=== PATIENT | female | born 1950 | race Caucasian/White ===

== ENCOUNTER 2017-05-12 20:16 | Emergency (ER) | payer MEDICARE, OTHER ==
--- NOTE | 2017-05-12 21:13 | ERNOTE ---
Lower Extremity HPI - General Lower Extremities Pain: leg: right - painful Time Seen by Provider: 05/12/17 20:51 Source: patient Exam Limitations: no limitations - Immun/Allergies/Home Medications Immunizations: IMMUNIZATION HX Immunizations Up to Date Yes History of Influenza Vaccine No Hx Pneumococcal Vaccination Yes Allergies/Adverse Reactions: Allergies Allergy/AdvReac Type Severity Reaction Status Date / Time Sulfa (Sulfonamide Allergy Intermediate Verified 05/12/17 20:33 Antibiotics) [Sulfa(Sulfonamide Antibiotics)] clarithromycin [From Biaxin] Allergy Verified 05/12/17 20:33 trimethoprim Allergy Verified 05/12/17 20:33 Home Medications: HOME MEDICATIONS Furosemide 20 mg PO DAILY 06/14/12 [Last Taken 09/09/14 08:00 20mg] Lactobacillus Rhamnosus GG [Probiotic] 1 cap PO DAILY 06/14/12 [Last Taken 09/09 08:00 1 cap] Lisinopril 10 mg PO DAILY 06/14/12 [Last Taken 09/09/14 08:00 10mg] Multivitamin [Multivitamins] 1 each PO DAILY 06/14/12 [Last Taken 09/09/14 08: 00 1 tab] Naproxen Sodium [Naprelan] 500 mg PO BID 06/14/12 [Last Taken 09/09/14 08:00 500mg] Omeprazole [Prilosec] 20 mg PO DAILY 06/14/12 [Last Taken 09/09/14 08:00 20mg] Allopurinol [Zyloprim] 100 mg PO DAILY 02/06/15 [Last Taken Unknown] Fish Oil/Borage/Flax/Om3,6,9#1 [[place] 3-6-9 1,200 mg Softgel] 1,200 mg PO DAILY 02/12/15 [Last Taken Unknown] Metoclopramide HCl [Reglan] 10 mg PO QID PRN #60 tablet 02/15/15 [Last Taken Unknown] - History of Present Illness Narrative: Pt states that 2 days ago she began to have right leg pain. This has worsened since then. Occurred: other - 2 days ago Method of Injury: Reports: unknown Modifying Factors - (Improves): Reports: movement - walking Modifying Factors - (Worsens): Reports: immobilization Other Injuries: Reports: none Review of Systems - Review of Systems Constitutional: Absent: recent illness EYE: Present: no symptoms reported ENT: Present: no symptoms reported Respiratory: Absent: shortness of breath Cardiology: Absent: chest pain Gastrointestinal/Abdominal: Present: no symptoms reported Genitourinary: Present: no symptoms reported Musculoskeletal: Present: See HPI. Absent: back pain Skin: Absent: rash Neurological: Absent: numbness, tingling Endocrine: Present: no symptoms reported Hematologic/Lymphatic: Present: no symptoms reported Psych: Present: no symptoms reported - Patient's Past Medical History Patient History - Medical: Anemia, Diabetes Type 2, GERD, Other Patient History - Cardiac/Respiratory: No pertinent hx Patient History - Cancer: No Hx of Cancer Patient History - Surgical Procedures: Appendectomy, Cataracts, Total Knee Replacement, T & A Patient History - Other: None LMP (females 10-50): post men - Family History Father Family History - Medical: , Rheumatoid Arthritis Family History - Cardiac/Respiratory: Pneumonia Mother Family History - Medical: Diabetes Type 2 Family History - Cardiac/Respiratory: Coronary Heart Disease - Social History Living Situations: home Abuse History: No History of abuse Psych History: No pertinent hx Smoking Status: Never smoker Alcohol Use: none Drug Use: none - Immunizations Immunizations Up to Date: Yes Hx Pneumococcal Vaccination: Yes History of Influenza Vaccine: No Physical Exam - Physical Exam General Appearance: Present: wd/wn, alert, no apparent distress Head Exam: Present: normal inspection, no evidence of injury Respiratory: Present: no respiratory distress, no accessory muscle use Extremity Exam: Present: calf tenderness - right anterior/ lateral calf, no popliteal tenderness. right leg 1.5 cm larger than left. No cord palpated, tenderness diffuse. Absent: joint redness, joint swelling Neurological Exam: Present: alert, oriented, normal mood/affect, no motor/ sensory deficits Skin Exam: Present: normal color, warm/dry Lymphatic Exam: Present: no adenopathy ED Progress - Results and Orders Patient's Lab Results:: I have reviewed the patient's lab results. Results and Orders: Laboratory Tests 05/12/17 05/12/17 05/12/17 21:10 21:10 21:10 WBC 4.0 Hgb 8.0 L Hct 26.4 L Plt Count 117 L ESR 78 H D-Dimer C-Reactive Prot, Quant 1.8 H 05/12/17 21:10 WBC Hgb Hct Plt Count ESR D-Dimer 0.46 C-Reactive Prot, Quant - Vital Signs Patient's Vital Signs:: I have reviewed the patient's vital signs. Vital Signs: Vital Signs 05/12/17 20:28 Temperature 37.1 C Pulse Rate 68 Respiratory 16 Rate Blood Pressure 147/67 O2 Sat by Pulse 98 Oximetry - Progress/Reassessment Chief Complaint: Lower Extremity Pain/ Injury Progress:: Unchanged Departure Clinical Impression: Leg pain, anterior Qualifiers: Laterality: right Qualified Code(s): M79.604 - Pain in right leg - Departure Disposition: Home self-care Condition: Good Instructions: Cryotherapy, [id number], Heat Therapy Additional Instructions: alternate heat and cold. leave 20-30 minutes between them. See your primary care provider if not improving Referrals: Nicolas Sanchez, [Primary Care Provider] -
[2017-05-12 21:14] LABS: Hematocrit 26.4 % (37.0-47.0); Mean Cell Volume 79.5 fl (78-100); Mean Corpuscular Hemoglobin 24.1 pg (27-31); Mean Corpuscular Hgb Conc 30.3 g/dl (32-36); Mean Platelet Volume 10.1 fl (6.0-9.5); Neutrophil # 2.9 K/mm3 (1.3-6.0); Neutrophil % 72.8 % (42-75.0); Platelet Count 117 K/mm3 (150-450); Red Blood Count 3.32 M/mm3 (4.2-5.4)
[2017-05-12 22:48] VITALS: BP 144/51
== END 2017-05-12 22:49 | disposition home or self-care (01) ==
LOC: ER 20:16
DX: M79.604 Pain in right leg (principal); D64.9 Anemia, unspecified; E11.9 Type 2 diabetes mellitus without complications; K21.9 Gastro-esophageal reflux disease without esophagitis

== ENCOUNTER 2018-03-14 03:20 | Observation (INO) | payer MEDICARE, OTHER ==
[2018-03-14] MEDS ORDERED: NITROGLYCERIN 0.4 MG/TAB BTL SL ONE ×2 (03:35→03:49)
[2018-03-14] MEDS ORDERED: ONDANSETRON HCL/PF 2 MG/ML VIAL IV ONE (03:50)
[2018-03-14] MEDS ORDERED: ONDANSETRON HCL/PF 2 MG/ML VIAL ONE (03:50)
[2018-03-14] MEDS: NORMAL SALINE 1,000 ML IV PRN (03:50)
[2018-03-14] MEDS ORDERED: ASPIRIN 81 MG TAB.CHEW PO ONE (03:54)
[2018-03-14] MEDS ORDERED: ASPIRIN 81 MG TAB.CHEW ONE (03:54)
--- NOTE | 2018-03-14 04:13 | ERNOTE ---
Chest Pain/Cardiac HPI Date of Service: 03/14/18 Chief Complaint: Chest Pain Time Seen by Provider: 03/14/18 03:20 Source: patient, family Exam Limitations: no limitations Immunizations: IMMUNIZATION HX Immunizations Up to Date Yes History of Influenza Vaccine No Hx Pneumococcal Vaccination Yes Allergies/Adverse Reactions: Allergies Sulfa (Sulfonamide Antibiotics) [Sulfa(Sulfonamide Antibiotics)] Allergy (Intermediate, Verified 04/13/18 10:00) clarithromycin [From Biaxin] Allergy (Verified 04/13/18 10:00) trimethoprim Allergy (Verified 04/13/18 10:00) Home Medications: HOME MEDICATIONS RX: Furosemide 20 mg PO DAILY 06/14/12 [Last Taken 03/13/18 11:30] RX: Lactobacillus Rhamnosus GG [Probiotic] 1 cap PO DAILY 06/14/12 [Last Taken 03/13/18 11:30] RX: Lisinopril 10 mg PO DAILY 06/14/12 [Last Taken 03/13/18 11:30] RX: Multivitamin [Multivitamins] 1 ea PO DAILY 06/14/12 [Last Taken 03/13/18 11:30] RX: Naproxen Sodium [Naprelan] 500 mg PO BID 06/14/12 [Last Taken 03/13/18 11:30] RX: Omeprazole [Prilosec] 20 mg PO DAILY 06/14/12 [Last Taken 03/13/18 09:00] RX: Allopurinol [Zyloprim] 100 mg PO DAILY 02/06/15 [Last Taken 03/13/18 11:30] RX: Fish Oil/Borage/Flax/Om3,6,9#1 [[place] 3-6-9 1,200 mg Softgel] 1,200 mg PO DAILY 02/12/15 [Last Taken 03/13/18 11:30] Metoclopramide HCl [Reglan] 10 mg PO QID PRN #60 tab 02/15/15 [Last Taken 03/14/18 00:00] Acetaminophen [Pain Relief] 500 mg PO DAILY PRN 03/14/18 [Last Taken Unknown] Aspirin/Sod Bicarb/Citric Acid [[place] Es Tab Eff] 1 ea PO DAILY PRN 03/14/18 [Last Taken 03/13/18 18:00] cephalexin 500 mg capsule 500 mg PO QID #30 cap 04/13/18 [Last Taken Unknown] Pain Score #1 Pain Score: 10 Pain Score #2 Pain Score: 2 Pain Score #3 Pain Score: 0 Narrative: Patient has a history of acid reflux. She also had discussed a stress test with her doctor who was going to schedule a repeat one if she was having chest pains. She had one a couple of years ago. Today she began with chest pain going through to her back in the morning. It would get stronger and then almost go away, but did not, then get stronger again. It became very intense in the early hours of today so she came to the hospital. Date (Duration): 03/14/18 Time (Timing): 03:30 Timing: constant, getting worse Severity/Quality: severe, sharp Location: central, epigastric Chest Pain Radiation: no radiation Activities at Onset: none Modifying Factors - Improves: Present: nothing Modifying Factors - Worsens: Present: nothing Nitro Today/Relief: no nitro taken today Aspirin Treatment Today: no aspirin today Associated Symptoms: Present: shortness of breath, diaphoresis, nausea Prior Chest Pain/Cardiac Workup: Reports: prior chest pain, stress test Prior Treatment: Reports: treated by physician Review of Systems - Review of Systems Constitutional: Present: no symptoms reported EYE: Present: no symptoms reported ENT: Present: no symptoms reported Respiratory: Present: shortness of breath Cardiology: Present: chest pain Gastrointestinal/Abdominal: Present: nausea, vomiting Genitourinary: Present: no symptoms reported Musculoskeletal: Present: no symptoms reported Skin: Present: no symptoms reported Neurological: Present: no symptoms reported Endocrine: Present: no symptoms reported Hematologic/Lymphatic: Present: no symptoms reported Psych: Present: no symptoms reported All Other Systems: All systems neg except as marked Medical History (Last Updated 04/13/18 @ 10:04 by Yocasta Diaz) Acute renal failure Cholecystitis CHF (congestive heart failure) Diabetes GERD (gastroesophageal reflux disease) Surgical History: Surgical History (Last Updated 04/13/18 @ 10:04 by Yocasta Diaz) History of abdominal hernia Onset Date: 03/18/18 History of bilateral knee replacement Hx of appendectomy Hx of cholecystectomy Onset Date: 03/18/18 Hx of tonsillectomy Family History: Family History (Last Reviewed 03/14/18 @ 10:35 by Soumya May RN) Father Arthritis Mother Diabetes Heart disease Sister Cancer Social History: Preferred Language Arabic Smoking Status Never smoker Have you smoked in the past 12 No months Do you dip or chew tobacco No Abuse History No History of abuse Psych History No pertinent hx Alcohol Use none Drug Use none Physical Exam - Physical Exam General Appearance: Present: alert, severe distress, obese Head Exam: Present: normal inspection, no evidence of injury Eye Exam: Normal inspection: bilateral, PERRL: bilateral, EOMI: bilateral Ears, Nose, Throat: Present: normal ENT inspection, normal pharynx Neck: Present: normal inspection, nontender. Absent: carotid bruit Respiratory: Present: no respiratory distress, normal breath sounds, no accessory muscle use, chest nontender, lungs clear Cardiovascular/Chest: Present: regular rate, rhythm, no murmur, normal peripheral pulses Peripheral Pulses: N=norm/S=strong/W=weak/B=bound/A=absent: Carotid (R): Normal, Carotid (L): Normal, Radial (R): Normal, Dorsalis-pedis (R): Normal, Dorsalis- pedis (L): Normal Gastrointestinal/Abdominal: Present: normal bowel sounds, nontender, nondistended, soft, no organomegaly Rectal Exam: Present: deferred Pelvic Exam: Present: deferred Back Exam: Present: normal inspection, normal range of motion, no CVA tenderness, no vertebral tenderness Extremity Exam: Present: normal inspection, non-tender, normal range of motion, no edema Neurological Exam: Present: alert, oriented, normal mood/affect, no motor/sensory deficits Skin Exam: Present: normal color, warm/dry Lymphatic Exam: Present: no adenopathy ED Progress - Date and Time Seen: Date and Time: 03/14/18 06:21 Laboratory results: H/H 9.9/30.9, bun/creat 22/1.62, glucose 189, electrolyte wnl, liver functions 93,110,342, trop 0.017 - Results and Orders Patient's Lab Results:: I have reviewed the patient's lab results. - Vital Signs Patient's Vital Signs:: I have reviewed the patient's vital signs. Vital Signs: Vital Signs 03/14/18 03:29 03/14/18 03:41 Temperature 37.5 C Pulse Rate 82 86 Respiratory Rate 16 Blood Pressure 169/66 H 143/56 O2 Sat by Pulse Oximetry 98 95 - EKG EKG: NSR - with occasional premature ventricular contraction , low voltage in precordials EKG read: Interp. by me - X-Ray X-Ray #1 Interpretation: Interp. by me X-ray Comments: No infiltrates, cardiolmegaly - Progress/Reassessment Chief Complaint: Chest Pain Progress:: Improved - after two nitro sublingually, patient had no chest pain. She did have an episode of vomiting prior to its resolution. Back pain resolved shortly thereafter. Patient received aspirin also. She is pain free at this time. Plan - Plan Plan: Patient will be observed until a second troponin (4 hours) can be obtained at which time further decisions on care will be made. Departure Clinical Impression: Chest pain Qualifiers: Chest pain type: other chest pain Qualified Code(s): R07.89 - Other chest pain; R07.8 - Other chest pain - Departure Disposition: Still a patient Condition: Fair
[2018-03-14 04:16] LABS: Hematocrit 30.9 % (37.0-47.0); Hemoglobin 9.9 gm/dL (12.5-16.0); Mean Cell Volume 93.4 fl (78-100); Mean Corpuscular Hemoglobin 29.9 pg (27-31); Mean Platelet Volume 10.2 fl (8-12.5); Neutrophil # 6.2 K/mm3 (1.3-6.0); Platelet Count 86 K/mm3 (150-450); Red Blood Count 3.31 M/mm3 (4.2-5.4); Red Cell Distribution Width 14.5 % (11.5-14.0); White Blood Count 7.1 K/mm3 (4.0-10.5)
[2018-03-14 04:25] LABS: Prothrombin Time (Patient) 10.5 Seconds (9.0-11.0)
[2018-03-14 04:29] LABS: INR 1.05 INR (0.90-1.10); Partial Thrombolplastin Time 26.4 Seconds (24-32)
[2018-03-14 04:34] LABS: ALT 110 U/L (19-67); AST 93 U/L (0-48); Albumin * 3.2 gm/dl (3.4-5.0); Alkaline Phosphatase * 342 U/L (50-170); Anion Gap 9.2 mmol/L (6.8-13.8); BUN/Creatinine Ratio 13.6 (9.0-21.6); Bilirubin, Total 1.6 mg/dL (0.0-1.1); Blood Urea Nitrogen 22 mg/dL (3-23); Ca. Corrected For Albumin 8.9 mg/dL (8.4-10.2); Calcium * 8.6 mg/dL (7.9-10.9); Carbon Dioxide 28.6 mmol/L (24-32.6); Chloride 100 mmol/L (97-106); Glucose * 189 mg/dL (70-110); Potassium 3.8 mmol/L (3.4-4.6); Sodium 134 mmol/L (132-142); Total Protein 7.8 gm/dL (6.2-8.2); Troponin I Less than 0.017 ng/mL (0.00-0.10)
[2018-03-14] MEDS: ONDANSETRON HCL/PF 2 MG/ML VIAL IV PRN ×2 (09:39→23:07)
[2018-03-14] MEDS ORDERED: SOD BICARB PO PRN (11:10)
[2018-03-14] MEDS ORDERED: CITRIC ACID PO PRN (11:10)
[2018-03-14] MEDS ORDERED: ASPIRIN PO PRN (11:10)
[2018-03-14] MEDS ORDERED: ONDANSETRON 8 MG TAB.RAPDIS PO PRN (11:10)
[2018-03-14] MEDS ORDERED: ACETAMINOPHEN 500 MG TABLET PO PRN (11:10)
--- NOTE | 2018-03-14 13:16 | HP ---
Chief Complaint - Chief Complaint Date of Service: 03/14/18 Time of Service: 09:45 Chief Complaint: Chest pain and shortness of breath. History of Present Illness: Gwendolyn Sanderson is a 67-year-old female patient of Dr. Sanchez who developed substernal chest pain and was brought to the emergency room. Troponins and EKG were nonrevealing. However she did resolve with aspirin and 2 nitroglycerin. She does have a long-standing history of GERD. This morning she is feeling better and has not had anymore chest discomfort. Vital signs show blood pressure slightly elevated but otherwise completely stable. liver enzymes are elevated. Hemoglobin is 9.9 g. The white count is 7100 with 88% neutrophils. Platelets are low at 86,000. Troponin has been less than 0.017 2. EKG show no evidence of acute injury. Medical History (Last Reviewed 03/14/18 @ 10:35 by Soumya May RN) Acute renal failure Diabetes GERD (gastroesophageal reflux disease) Surgical History: Surgical History (Last Reviewed 03/14/18 @ 10:35 by Soumya May RN) History of bilateral knee replacement Hx of appendectomy Hx of tonsillectomy Family History: Family History (Last Reviewed 03/14/18 @ 10:35 by Soumya May RN) Father Arthritis Mother Diabetes Heart disease Sister Cancer Social History: Patient Lives/Resources With Spouse Utilized Occupation retired Preferred Language Faroese Smoking Status Former smoker Have you smoked in the past 12 No months Do you dip or chew tobacco No Abuse History No History of abuse Psych History No pertinent hx Alcohol Use none Drug Use none Review Of Systems (GEN) - Review of Systems Generalized/Overall Review: Present: Weakness, Malaise, Fatigue EENTM: Present: No Symptoms Reported Respiratory: Present: No Symptoms Reported Cardiac: Present: Chest Pain Abdominal: Present: No Symptoms Reported, Nausea, Vomiting Genitourinary: Present: No Symptoms Reported Musculoskeletal: Present: No Symptoms Reported Neurological: Present: No Symptoms Reported Skin: Present: No Symptoms Reported Endocrine: Present: No Symptoms Reported Misc: All systems neg except as marked Immunizations: IMMUNIZATION HX Immunizations Up to Date Yes History of Influenza Vaccine No Hx Pneumococcal Vaccination Yes Allergies/Adverse Reactions: Allergies Allergy/AdvReac Type Severity Reaction Status Date / Time Sulfa (Sulfonamide Allergy Intermediate Verified 03/14/18 04:13 Antibiotics) [Sulfa(Sulfonamide Antibiotics)] clarithromycin [From Biaxin] Allergy Verified 03/14/18 04:13 trimethoprim Allergy Verified 03/14/18 04:13 Home Medications: HOME MEDICATIONS Furosemide 20 mg PO DAILY 06/14/12 [Last Taken 03/13/18 11:30] Lactobacillus Rhamnosus GG [Probiotic] 1 cap PO DAILY 06/14/12 [Last Taken 03/13 11:30] Lisinopril 10 mg PO DAILY 06/14/12 [Last Taken 03/13/18 11:30] Multivitamin [Multivitamins] 1 each PO DAILY 06/14/12 [Last Taken 03/13/18 11:30 ] Naproxen Sodium [Naprelan] 500 mg PO BID 06/14/12 [Last Taken 03/13/18 11:30] Omeprazole [Prilosec] 20 mg PO DAILY 06/14/12 [Last Taken 03/13/18 09:00] Allopurinol [Zyloprim] 100 mg PO DAILY 02/06/15 [Last Taken 03/13/18 11:30] Fish Oil/Borage/Flax/Om3,6,9#1 [[place] 3-6-9 1,200 mg Softgel] 1,200 mg PO DAILY 02/12/15 [Last Taken 03/13/18 11:30] Metoclopramide HCl [Reglan] 10 mg PO QID PRN #60 tablet 02/15/15 [Last Taken 00:00] Acetaminophen [Pain Relief] 500 mg PO DAILY PRN 03/14/18 [Last Taken Unknown] Aspirin/Sod Bicarb/Citric Acid [[place] Es Tab Eff] 1 each PO DAILY PRN [Last Taken 03/13/18 18:00] Exam - Exam Vital Signs: Vital Signs - Last Taken Temp 37.6 C 03/14/18 11:10 Pulse 86 03/14/18 11:10 Resp 20 03/14/18 11:10 BP 144/56 03/14/18 11:10 Pulse Ox 94 03/14/18 11:10 Constitutional: Present: Alert, Oriented x3, Cooperative, Well developed, Well nourished, No distress, Obese ENT Exam: Present: normal ENT inspection Eye Exam: bilateral eye: normal inspection, PERRL, EOMI Neck: Present: non-tender, full range of motion Back Exam: Present: normal inspection, no CVA tenderness, no vertebral tenderness Breasts: Present: Exam deferred Respiratory: Present: chest non-tender Cardiovascular/Chest: Present: normal peripheral pulses, regular rate, rhythm, no chest tenderness, no edema Peripheral Pulses: carotid (R): 2+, carotid (L): 2+, radial (R): 2+, radial (L) : 2+ Abdomen: Present: soft, nondistended, no hepatospenomegaly, rebound tenderness, hypoactive /Rectal: Present: Exam deferred Extremity: Present: normal range of motion, non-tender, normal inspection, no pedal edema, no calf tenderness Skin Exam: Present: normal color, warm/dry, no cyanosis Lymphatic: Present: no adenopathy 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, no motor/sensory deficits, alert , normal mood/affect, oriented x 3 Appearance: Present: appropriate appearance, appropriate insight, neat Eye contact: Present: cooperative, good eye contact, normal speech Thoughts: Present: normal thought pattern, no apparent hallucination Diagnostic Studies: Abnormal Lab Results 03/14/18 03/14/18 Range/Units 04:15 04:15 RBC 3.31 L (4.2-5.4) M/mm3 Hgb 9.9 L (12.5-16.0) gm/dL Hct 30.9 L (37.0-47.0) % RDW 14.5 H (11.5-14.0) % Plt Count 86 L (150-450) K/mm3 Immature Gran % (Auto) 0.60 H (0.001-0.429) % Immature Gran # (Auto) 0.04 H (0.000-0.0310) K/mm3 Neutrophils % 88.0 H (42-75.0) % Lymphocytes % 4.5 L (20-51) % Neutrophils # 6.2 H (1.3-6.0) K/mm3 Lymphocytes # 0.32 L (1.5-3.5) k/mm3 Creatinine 1.62 H (0.4-1.4) mg/dL Est GFR (Non-Af Amer) 33 L (60-130) mL/min Random Glucose 189 H (70-110) mg/dL Total Bilirubin 1.6 H (0.0-1.1) mg/dL AST 93 H (0-48) U/L ALT 110 H (19-67) U/L Alkaline Phosphatase 342 H (50-170) U/L Albumin 3.2 L (3.4-5.0) gm/dl Laboratory Results WBC 7.1 K/mm3 (4.0-10.5) 03/14/18 04:15 RBC 3.31 M/mm3 (4.2-5.4) L 03/14/18 04:15 Hgb 9.9 gm/dL (12.5-16.0) L 03/14/18 04:15 Hct 30.9 % (37.0-47.0) L 03/14/18 04:15 MCV 93.4 fl (78-100) 03/14/18 04:15 MCH 29.9 pg (27-31) 03/14/18 04:15 MCHC 32.0 g/dl (32-36) 03/14/18 04:15 RDW 14.5 % (11.5-14.0) H 03/14/18 04:15 Plt Count 86 K/mm3 (150-450) L 03/14/18 04:15 MPV 10.2 fl (8-12.5) 03/14/18 04:15 Immature Gran % (Auto) 0.60 % (0.001-0.429) H 03/14/18 04:15 Immature Gran # (Auto) 0.04 K/mm3 (0.000-0.0310) H 03/14/18 04:15 Neutrophils % 88.0 % (42-75.0) H 03/14/18 04:15 Lymphocytes % 4.5 % (20-51) L 03/14/18 04:15 Monocytes % 6.2 % (0.0-9) 03/14/18 04:15 Eosinophils % 0.4 % (0.0-3.0) 03/14/18 04:15 Basophils % 0.3 % (0.0-1.0) 03/14/18 04:15 Nucleated RBC % 0.0 k/mm3 (0-1) 03/14/18 04:15 Neutrophils # 6.2 K/mm3 (1.3-6.0) H 03/14/18 04:15 Lymphocytes # 0.32 k/mm3 (1.5-3.5) L 03/14/18 04:15 Monocytes # 0.4 k/mm3 (0.0-1.0) 03/14/18 04:15 Eosinophils # 0.0 k/mm3 (0.0-0.7) 03/14/18 04:15 Absolute Basophils 0.0 k/mm3 (0.0-0.1) 03/14/18 04:15 PT 10.5 Seconds (9.0-11.0) 03/14/18 04:15 INR (Anticoag Therapy) 1.05 INR (0.90-1.10) 03/14/18 04:15 PTT ([facility]) 26.4 Seconds (24-32) 03/14/18 04:15 Sodium 134 mmol/L (132-142) 03/14/18 04:15 Plasma Sodium 135 mmol/L (130-142) 03/14/18 04:15 Potassium 3.8 mmol/L (3.4-4.6) 03/14/18 04:15 Chloride 100 mmol/L (97-106) 03/14/18 04:15 Carbon Dioxide 28.6 mmol/L (24-32.6) 03/14/18 04:15 Anion Gap 9.2 mmol/L (6.8-13.8) 03/14/18 04:15 BUN 22 mg/dL (3-23) 03/14/18 04:15 Creatinine 1.62 mg/dL (0.4-1.4) H 03/14/18 04:15 Est GFR (Non-Af Amer) 33 mL/min (60-130) L 03/14/18 04:15 BUN/Creatinine Ratio 13.6 (9.0-21.6) 03/14/18 04:15 Random Glucose 189 mg/dL (70-110) H 03/14/18 04:15 Calcium 8.6 mg/dL (7.9-10.9) 03/14/18 04:15 Calcium Adj for Albumin 8.9 mg/dL (8.4-10.2) 03/14/18 04:15 Total Bilirubin 1.6 mg/dL (0.0-1.1) H 03/14/18 04:15 AST 93 U/L (0-48) H 03/14/18 04:15 ALT 110 U/L (19-67) H 03/14/18 04:15 Alkaline Phosphatase 342 U/L (50-170) H 03/14/18 04:15 Troponin I Less than 0.017 ng/mL (0.00-0.10) 03/14/18 08:11 Total Protein 7.8 gm/dL (6.2-8.2) 03/14/18 04:15 Albumin 3.2 gm/dl (3.4-5.0) L 03/14/18 04:15 Assessment/Plan - Narrative Narrative: IV fluids, ondansetron for nausea, started on sucralfate suspension, repeat morning labs, started a PPI, progress diet and activity as tolerated. - Assessment/Plan (1) Enterocolitis Problem: Acute (2) Anemia Problem: Acute Qualifiers: Anemia type: due to chronic kidney disease Chronic kidney disease stage: stage 4 (severe) Qualified Code(s): N18.4 - Chronic kidney disease, stage 4 ( severe); D63.1 - Anemia in chronic kidney disease (3) UTI (urinary tract infection) Problem: Acute Qualifiers: Urinary tract infection type: acute cystitis (4) Acute renal failure Problem: Acute Qualifiers: Acute renal failure type: unspecified Qualified Code(s): N17.9 - Acute kidney failure, unspecified (5) Gastroesophageal reflux Problem: Acute Qualifiers: Esophagitis presence: esophagitis presence not specified Qualified Code(s) : K21.9 - Gastro-esophageal reflux disease without esophagitis (6) Chest pain Problem: Acute Qualifiers: Chest pain type: other chest pain Qualified Code(s): R07.89 - Other chest pain; R07.8 - Other chest pain
[2018-03-14] MEDS: PANTOPRAZOLE SODIUM 40 MG TABLET.EC PO SCH ×2 (13:19→20:52)
[2018-03-14] MEDS: FUROSEMIDE 10 MG/ML VIAL IV SCH ×2 (13:19→20:54)
[2018-03-14 15:30] LABS: Urine Appearance Clear (CLEAR); Urine Bilirubin Negative (NEGATIVE); Urine Blood Negative /ul (NEGATIVE); Urine Color Yellow; Urine Ketone Negative (NEGATIVE); Urine Nitrite Negative (NEGATIVE); Urine Protein Negative (NEGATIVE); Urine Urobilinogen Normal (NORMAL)
[2018-03-14 15:31] LABS: Urine Bacteria None Seen; Urine RBC None Seen /hpf (0-5); Urine WBC 0-5 /hpf (0-5)
[2018-03-14] MEDS: SUCRALFATE 1 G/10 ML UDC PO SCH ×2 (17:04→20:51)
[2018-03-14] MEDS ORDERED: BELLADONNA ALKALOIDS/PHENOBARB 60 ML BTL PO ONE (19:08)
[2018-03-14] MEDS ORDERED: MAG HYDROX/ALUMINUM HYD/SIMETH 148 ML BTL PO ONE (19:11)
[2018-03-14] MEDS ORDERED: LIDOCAINE HCL 20 ML UDC PO ONE (19:14)
[2018-03-14] MEDS ORDERED: LIDOCAINE HCL 20 ML UDC ONE (19:16)
[2018-03-14] MEDS ORDERED: MAG HYDROX/ALUMINUM HYD/SIMETH 30 ML UDC ONE (19:30)
[2018-03-14] MEDS ORDERED: MORPHINE SULFATE 10 MG/ML SYRG IV PRN (22:36)
[2018-03-15 05:38] LABS: Hematocrit 30.3 % (37.0-47.0); Hemoglobin 9.6 gm/dL (12.5-16.0); Mean Cell Volume 93.8 fl (78-100); Mean Corpuscular Hemoglobin 29.7 pg (27-31); Mean Corpuscular Hgb Conc 31.7 g/dl (32-36); Mean Platelet Volume 10.8 fl (8-12.5); Neutrophil % 90.5 % (42-75.0); Platelet Count 76 K/mm3 (150-450); Red Blood Count 3.23 M/mm3 (4.2-5.4); Red Cell Distribution Width 14.6 % (11.5-14.0); White Blood Count 7.8 K/mm3 (4.0-10.5)
[2018-03-15 05:54] LABS: Anion Gap 10.2 mmol/L (6.8-13.8); BUN/Creatinine Ratio 10.8 (9.0-21.6); Bilirubin, Total 3.8 mg/dL (0.0-1.1); Calcium * 8.5 mg/dL (7.9-10.9); Carbon Dioxide 28.5 mmol/L (24-32.6); Potassium 3.7 mmol/L (3.4-4.6); Total Protein 7.9 gm/dL (6.2-8.2)
[2018-03-15] MEDS: SUCRALFATE 1 G/10 ML UDC PO SCH ×4 (06:44→21:13)
[2018-03-15] MEDS: PANTOPRAZOLE SODIUM 40 MG TABLET.EC PO SCH ×2 (06:45→21:13)
[2018-03-15] MEDS ORDERED: ACETAMINOPHEN 325 MG TABLET PO PRN (07:27)
[2018-03-15] MEDS ORDERED: LEVOFLOXACIN IN DEXTROSE 5 % 750 MG/150 ML BAG IV ONE (07:55)
[2018-03-15] MEDS: FUROSEMIDE 10 MG/ML VIAL IV SCH (08:47)
[2018-03-15] MEDS ORDERED: ALLOPURINOL 100 MG TABLET PO SCH (09:00)
[2018-03-15] MEDS ORDERED: LISINOPRIL 10 MG TABLET PO SCH (09:00)
[2018-03-15] MEDS ORDERED: MULTIVITAMINS 1 CAP CAPSULE PO SCH (09:00)
--- NOTE | 2018-03-15 09:01 | PN ---
Subjective - Date and Time Seen Date: 03/15/18 Time: 07:20 Subjective Narrative: Gwendolyn Sanderson spiked a fever this morning 202.7. She is having quite a lot of pain again last night and I gave her 5 mg of morphine and her Carafate suspension and her pain resolved. She has not had any more pain since. She did not eat anything for breakfast this morning. I have placed her nothing by mouth. Her liver enzymes have increased and her bilirubin doubled up to 3.2 this morning. I believe she has a biliary outlet obstruction probably from gallbladder disease. I ordered an ultrasound but that report is still pending. I spoke with Dr. Weiner this morning and apprised him of the situation. He is going to see her today. I will move her to an acute care stay now. Objective - Review of Systems Generalized/Overall Review: Reports: No Symptoms Reported EENTM: Reports: No Symptoms Reported Respiratory: Reports: No Symptoms Reported Cardiac: Reports: No Symptoms Reported Abdominal: Reports: No Symptoms Reported Genitourinary Symptoms: Reports: No Symptoms Reported Musculoskeletal Complaints: Reports: No Symptoms Reported Neurological: Reports: No Symptoms Reported Skin: Reports: No Symptoms Reported Misc: All systems neg except as marked - Vitals Vitals: Last Vital Signs Temp 39.2 C H 03/15/18 07:20 Pulse 91 03/15/18 08:47 Resp 24 H 03/15/18 07:20 BP 141/49 03/15/18 08:47 Pulse Ox 92 L 03/15/18 07:20 - Abnormal Lab Findings Abnormal Lab Findings: Abnormal Lab Results 03/14/18 03/15/18 03/15/18 Range/Units 08:11 05:39 05:39 RBC 3.23 L (4.2-5.4) M/mm3 Hgb 9.6 L (12.5-16.0) gm/dL Hct 30.3 L (37.0-47.0) % MCHC 31.7 L (32-36) g/dl RDW 14.6 H (11.5-14.0) % Plt Count 76 L (150-450) K/mm3 Immature Gran % (Auto) 0.50 H (0.001-0.429) % Immature Gran # (Auto) 0.04 H (0.000-0.0310) K/mm3 Neutrophils % 90.5 H (42-75.0) % Lymphocytes % 2.7 L (20-51) % Neutrophils # 7.0 H (1.3-6.0) K/mm3 Lymphocytes # 0.21 L (1.5-3.5) k/mm3 Creatinine 1.76 H (0.4-1.4) mg/dL Est GFR (Non-Af Amer) 30 L (60-130) mL/min Random Glucose 166 H (70-110) mg/dL Total Bilirubin 3.8 H (0.0-1.1) mg/dL AST 121 H (0-48) U/L ALT 155 H (19-67) U/L Alkaline Phosphatase 360 H (50-170) U/L B-Natriuretic Peptide 378 H (5-325) pg/mL Albumin 3.0 L (3.4-5.0) gm/dl - Exam Constitutional: Present: Alert, Oriented x3, Cooperative, Well developed, Well nourished, No distress ENT Exam: Present: normal ENT inspection, hearing grossly normal, pharynx normal , TMs normal, hard of hearing Neck: Present: non-tender, full range of motion, supple, normal inspection, trachea midline Respiratory: Present: chest non-tender, lungs clear, normal breath sounds, no accessory muscle use, decreased breath sounds Cardiovascular/Chest: Present: normal peripheral pulses, regular rate, rhythm, no chest tenderness, no edema, no gallop, no JVD, no murmur, no rub Abdomen: Present: Normal bowel sounds, soft, nondistended, no rebound tenderness , no hepatospenomegaly, tender - In the midepigastrium, negative Jones sign. Absent: rebound tenderness /Rectal: Present: Exam deferred Extremity: Present: normal range of motion, non-tender, normal inspection, no pedal edema, no calf tenderness, normal capillary refill Skin Exam: Present: normal color, warm/dry, no cyanosis Lymphatic: Present: no adenopathy Neurologic: Present: director of healthcare systems II-XII nml as tested, normal cerebellar test, no motor/ sensory deficits, alert, normal mood/affect, abnormal gait, aphasia Appearance: Present: appropriate appearance, appropriate insight, neat Eye contact: Present: cooperative, good eye contact, normal speech Thoughts: Present: normal thought pattern, no apparent hallucination Assessment/Plan - Problems/Diagnosis (1) Biliary obstruction Problem: Acute (2) Enterocolitis Problem: Acute (3) Anemia Problem: Acute Qualifiers: Anemia type: due to chronic kidney disease Chronic kidney disease stage: stage 4 (severe) Qualified Code(s): N18.4 - Chronic kidney disease, stage 4 ( severe); D63.1 - Anemia in chronic kidney disease (4) UTI (urinary tract infection) Problem: Acute Qualifiers: Urinary tract infection type: acute cystitis (5) Acute renal failure Problem: Acute Qualifiers: Acute renal failure type: unspecified Qualified Code(s): N17.9 - Acute kidney failure, unspecified (6) Gastroesophageal reflux Problem: Acute Qualifiers: Esophagitis presence: esophagitis presence not specified Qualified Code(s) : K21.9 - Gastro-esophageal reflux disease without esophagitis (7) Chest pain Problem: Acute Qualifiers: Chest pain type: other chest pain Qualified Code(s): R07.89 - Other chest pain; R07.8 - Other chest pain
--- NOTE | 2018-03-15 11:02 | CONS ---
HPI - General Date of Service: 03/15/18 Source: patient, RN/MD, RN notes reviewed, old records Exam Limitations: no limitations - History of Present Illness Initial Comments: She started having severe substernal pain which radiated through to between the shoulder blades. She presented to the emergency room on 03/14/2018. She ruled out for myocardial infarction. She had some relief with GI cocktail and morphine. Last night she developed a fever and this morning her liver function studies were elevated. Ultrasound reveals dilated bile ducts, cholelithiasis, and probable choledocholithiasis Her last EGD was in 2009 and revealed some mild irritation, CLOtest negative. She had a negative colonoscopy in 2009 as well. Allergies/Adverse Reactions: Allergies Sulfa (Sulfonamide Antibiotics) [Sulfa(Sulfonamide Antibiotics)] Allergy ( Intermediate, Verified 03/14/18 04:13) clarithromycin [From Biaxin] Allergy (Verified 03/14/18 04:13) trimethoprim Allergy (Verified 03/14/18 04:13) Home Medications: Home Medications Medication Instructions Recorded Last Taken Furosemide 20 mg PO DAILY 06/14/12 03/13/18 11:30 Lactobacillus Rhamnosus GG 1 cap PO DAILY 06/14/12 03/13/18 11:30 [Probiotic] Lisinopril 10 mg PO DAILY 06/14/12 03/13/18 11:30 Multivitamin [Multivitamins] 1 each PO DAILY 06/14/12 03/13/18 11:30 Naproxen Sodium [Naprelan] 500 mg PO BID 06/14/12 03/13/18 11:30 Omeprazole [Prilosec] 20 mg PO DAILY 06/14/12 03/13/18 09:00 Allopurinol [Zyloprim] 100 mg PO DAILY 02/06/15 03/13/18 11:30 Fish Oil/Borage/Flax/Om3,6,9#1 1,200 mg PO DAILY 02/12/15 03/13/18 11:30 [[place] 3-6-9 1,200 mg Softgel] Metoclopramide HCl [Reglan] 10 mg PO QID PRN #60 tablet 02/15/15 03/14/18 00:00 Acetaminophen [Pain Relief] 500 mg PO DAILY PRN 03/14/18 Unknown Aspirin/Sod Bicarb/Citric Acid 1 each PO DAILY PRN 03/14/18 03/13/18 18:00 [[place] Es Tab Eff] Procedures COLONOSCOPY (11/10/09) ESOPHAGOGASTRODUODENOSCOPY [EGD] W/CLOSED BIOPSY (02/16/10) PACKED CELL TRANSFUSION (02/16/10) Total knee replacement (10/06/07) Medications - Medications Current Medications: Current Medications Acetaminophen (Tylenol) 650 mg PO Q6H PRN PRN Reason: Mild pain (pain scale 1-3) Stop: 04/14/18 07:28 Last Admin: 03/15/18 07:42 Dose: 650 mg Furosemide (Lasix) 40 mg IV BID CHYNA Stop: 03/15/18 11:16 Last Admin: 03/15/18 08:47 Dose: 40 mg Sodium Chloride (Sodium Chloride 0.9%) 1,000 mls @ 30 mls/hr IV .Q24H PRN PRN Reason: HYDRATION Stop: 04/13/18 04:07 Last Infusion: 03/14/18 08:47 Dose: 30 mls/hr Morphine Sulfate (Morphine Sulfate) 5 mg IV Q4H PRN PRN Reason: Pain Stop: 04/13/18 22:37 Last Admin: 03/14/18 23:06 Dose: 5 mg Ondansetron HCl (Zofran) 8 mg IV Q6H PRN PRN Reason: Nausea And Vomiting Stop: 04/13/18 09:15 Last Admin: 03/14/18 23:07 Dose: 8 mg Pantoprazole Sodium (Protonix) 40 mg PO BID@0700,2100 CHYNA Stop: 04/13/18 11:16 Last Admin: 03/15/18 06:45 Dose: 40 mg Sucralfate (Carafate Suspension) 1 g PO ACHS CHYNA Stop: 04/13/18 17:01 Last Admin: 03/15/18 06:44 Dose: 1 g Review of Systems - Review of Systems Abdominal: Present: Other - She continues to have discomfort in the mid chest and between the shoulder blades, although she did get some relief last night with morphine and slept a little. She has not had nausea or vomiting. Physical Examination - Exam Vital Signs: Vital Signs - Last Taken Temp 38.0 C 03/15/18 08:57 Pulse 91 03/15/18 08:47 Resp 24 H 03/15/18 07:20 BP 141/49 03/15/18 08:47 Pulse Ox 92 L 03/15/18 07:20 O2 Oxygen Delivery Method Room Air Constitutional: Present: Alert, Oriented x3, Cooperative, Morbidly obese Abdomen: Present: other - Very obese. Appearance: Present: appropriate insight Eye contact: Present: cooperative, good eye contact Thoughts: Present: normal thought pattern - Results and Findings: Lab/Microbiology results last 24 hrs: Abnormal/Pending Laboratory Last 24 HRS 03/15/18 03/15/18 03/14/18 05:39 05:39 08:11 RBC 3.23 L Hgb 9.6 L Hct 30.3 L MCHC 31.7 L RDW 14.6 H Plt Count 76 L Immature Gran % (Auto) 0.50 H Immature Gran # (Auto) 0.04 H Neutrophils % 90.5 H Lymphocytes % 2.7 L Neutrophils # 7.0 H Lymphocytes # 0.21 L Creatinine 1.76 H Est GFR (Non-Af Amer) 30 L Random Glucose 166 H Total Bilirubin 3.8 H AST 121 H ALT 155 H Alkaline Phosphatase 360 H B-Natriuretic Peptide 378 H Albumin 3.0 L Abdominal ultrasound reveals stones in the gallbladder with thickened gallbladder wall. The common bile duct is dilated and there is a filling defect - Assessments/Findings (1) Choledocholithiasis with obstruction Diagnosis(s): She also has had a fever which raises the concern of cholangitis as well, although this may be due to atelectasis from pain. Pamphlets on gallbladder disease, gallbladder surgery, and ERCP were reviewed with the patient and given to her. I would recommend transfer to the [facility] for ERCP. She will require cholecystectomy electively, and that will also need to be done at a tertiary care center that can provide care for morbidly obese individuals. I did discuss the case with Dr. Cruz Reviewed and electronically signed Problem: Acute
--- NOTE | 2018-03-15 12:40 | DS ---
Transfer Discharge Summary - Diagnosis(s)/Problems (1) Common bile duct (CBD) obstruction Problem: Acute (2) Acute cholecystitis due to biliary calculus Problem: Acute (3) Biliary obstruction Problem: Acute (4) Enterocolitis Problem: Acute (5) Anemia Problem: Acute (6) UTI (urinary tract infection) Problem: Acute (7) Acute renal failure Problem: Acute (8) Gastroesophageal reflux Problem: Acute (9) Chest pain Problem: Acute - Course Description of Stay: Gwendolyn Sanderson is a 67-year-old female who presented initially with substernal chest pain that was radiating through to the back. She did not have shortness of breath, diaphoresis, nausea, or lightheadedness. She had had a stress test done a few years ago that was normal. She is an obese lady with BMI of 52. After taking a history of doing a physical on her eye was quite convinced this was not cardiac and was a GI issue. She has a chronic history of GERD with acid reflux disease. She had an upper endoscopy done 2 years ago that did not show any erosion of the esophagus however. On exam she was tender in the right upper quadrant but more tender in the midepigastrium. She also has some tenderness in the left lateral upper abdomen. Her Jones's test is negative. Pain again last night that was relieved with nitroglycerin and sucralfate. She has been comfortable since then. She was nothing by mouth this morning. I ordered abdominal ultrasound which shows a 9 mm stone in the common bile duct and a gallbladder that appears to be acutely inflamed with thickened gallbladder wall and presence of intraluminal stones. She had spiked a fever to 102.7 this morning which was relieved with acetaminophen. At this time she is comfortable. I had see her and he agrees that she has had biliary obstruction from a stone. He believes she will need an ERCP to remove the stone and then electively schedule a cholecystectomy. I showed her her on Levaquin this morning. Because her BMI is greater than 40 on her surgery here but in any case we do not have the capability of doing an ERCP here. I will make transfer arrangements for her to go to [facility]. Consultation Done:: Dr. Weiner Procedures Performed: none - Results and Findings Results and Findings: Laboratory Results - last 24 hr 03/14/18 03/14/18 03/15/18 08:11 14:35 05:39 WBC 7.8 RBC 3.23 L Hgb 9.6 L Hct 30.3 L MCV 93.8 MCH 29.7 MCHC 31.7 L RDW 14.6 H Plt Count 76 L MPV 10.8 Immature Gran % (Auto) 0.50 H Immature Gran # (Auto) 0.04 H Neutrophils % 90.5 H Lymphocytes % 2.7 L Monocytes % 6.2 Eosinophils % 0.0 Basophils % 0.1 Nucleated RBC % 0.0 Neutrophils # 7.0 H Lymphocytes # 0.21 L Monocytes # 0.5 Eosinophils # 0.0 Absolute Basophils 0.0 Sodium Plasma Sodium Potassium Chloride Carbon Dioxide Anion Gap BUN Creatinine Est GFR (Non-Af Amer) BUN/Creatinine Ratio Random Glucose Calcium Calcium Adj for Albumin Total Bilirubin AST ALT Alkaline Phosphatase B-Natriuretic Peptide 378 H Total Protein Albumin Urine Color Yellow Urine Appearance Clear Urine pH 7.0 Ur Specific [place] 1.010 Urine Protein Negative Urine Glucose (UA) Negative Urine Ketones Negative Urine Blood Negative Urine Nitrate Negative Urine Bilirubin Negative Urine Urobilinogen Normal Ur Leukocyte Esterase Negative Urine RBC None seen Urine WBC 0-5 Ur Epithelial Cells 0-5 Urine Bacteria None seen 03/15/18 05:39 WBC RBC Hgb Hct MCV MCH MCHC RDW Plt Count MPV Immature Gran % (Auto) Immature Gran # (Auto) Neutrophils % Lymphocytes % Monocytes % Eosinophils % Basophils % Nucleated RBC % Neutrophils # Lymphocytes # Monocytes # Eosinophils # Absolute Basophils Sodium 134 Plasma Sodium 135 Potassium 3.7 Chloride 99 Carbon Dioxide 28.5 Anion Gap 10.2 BUN 19 Creatinine 1.76 H Est GFR (Non-Af Amer) 30 L BUN/Creatinine Ratio 10.8 Random Glucose 166 H Calcium 8.5 Calcium Adj for Albumin 9.0 Total Bilirubin 3.8 H AST 121 H ALT 155 H Alkaline Phosphatase 360 H B-Natriuretic Peptide Total Protein 7.9 Albumin 3.0 L Urine Color Urine Appearance Urine pH Ur Specific [place] Urine Protein Urine Glucose (UA) Urine Ketones Urine Blood Urine Nitrate Urine Bilirubin Urine Urobilinogen Ur Leukocyte Esterase Urine RBC Urine WBC Ur Epithelial Cells Urine Bacteria - Medications Medications: Active Medications Acetaminophen (Tylenol) 650 mg PO Q6H PRN PRN Reason: Mild pain (pain scale 1-3) Stop: 04/14/18 07:28 Last Admin: 03/15/18 07:42 Dose: 650 mg Allopurinol (Zyloprim) 100 mg PO DAILY [facility] Stop: 04/14/18 09:01 Last Admin: 03/15/18 11:21 Dose: 100 mg Sodium Chloride (Sodium Chloride 0.9%) 1,000 mls @ 30 mls/hr IV .Q24H PRN PRN Reason: HYDRATION Stop: 04/13/18 04:07 Last Infusion: 03/14/18 08:47 Dose: 30 mls/hr Lisinopril (Zestril) 10 mg PO DAILY CHYNA Stop: 04/14/18 09:01 Last Admin: 03/15/18 11:19 Dose: 10 mg Morphine Sulfate (Morphine Sulfate) 5 mg IV Q4H PRN PRN Reason: Pain Stop: 04/13/18 22:37 Last Admin: 03/14/18 23:06 Dose: 5 mg Multivitamins/Folic Acid (Multivitamin [place]) 1 cap PO DAILY CHYNA Stop: 04/14/18 09:01 Last Admin: 03/15/18 11:18 Dose: 1 cap Ondansetron HCl (Zofran) 8 mg IV Q6H PRN PRN Reason: Nausea And Vomiting Stop: 04/13/18 09:15 Last Admin: 03/14/18 23:07 Dose: 8 mg Pantoprazole Sodium (Protonix) 40 mg PO BID@0700,2100 [facility] Stop: 04/13/18 11:16 Last Admin: 03/15/18 06:45 Dose: 40 mg Sucralfate (Carafate Suspension) 1 g PO ACHS CHYNA Stop: 04/13/18 17:01 Last Admin: 03/15/18 11:20 Dose: 1 g Discontinued Medications Al Hydrox/Mg Hydrox/Simethicone (Maalox) 10 ml PO ONCE ONE Stop: 03/14/18 19:12 Last Admin: 03/14/18 19:33 Dose: 10 ml Aspirin (Aspirin Chewable) 324 mg PO ONCE ONE Stop: 03/14/18 03:55 Last Admin: 03/14/18 03:55 Dose: 324 mg Belladonna/Phenobarbital ( Elixir) 10 ml PO ONCE ONE Stop: 03/14/18 19:09 Last Admin: 03/14/18 19:34 Dose: 10 ml Furosemide (Lasix) 40 mg IV BID CHYNA Stop: 03/15/18 11:16 Last Admin: 03/15/18 08:47 Dose: 40 mg Levofloxacin/Dextrose (Levaquin) 750 mg in 150 mls @ 100 mls/hr IV ONCE ONE; Protocol Stop: 03/15/18 09:24 Last Admin: 03/15/18 08:51 Dose: 100 mls/hr Influenza Virus Vaccine Quadrival (Flulaval Quad [id number] Syringe) 60 mcg IM .ONCE ONE Stop: 03/14/18 13:51 Last Admin: 03/14/18 14:29 Dose: 60 mcg Lidocaine HCl (Lidocaine Hcl Viscous 2%) 20 ml PO ONCE ONE Stop: 03/14/18 19:15 Last Admin: 03/14/18 19:34 Dose: 20 ml Nitroglycerin (Nitrostat) 0.4 mg SL ONCE ONE Stop: 03/14/18 03:36 Last Admin: 03/14/18 03:37 Dose: 0.4 mg Nitroglycerin (Nitrostat) 0.4 mg SL ONCE ONE Stop: 03/14/18 03:50 Last Admin: 03/14/18 03:51 Dose: 0.4 mg Ondansetron HCl (Zofran) 4 mg IV ONCE ONE Stop: 03/14/18 03:51 Last Admin: 03/14/18 03:52 Dose: 4 mg - Disposition Disposition: Home self-care Condition: Fair Discharge Date: 03/15/18 Discharge Time: 12:36
[2018-03-15] MEDS: NORMAL SALINE 1,000 ML IV PRN (13:42)
[2018-03-15 21:57] VITALS: BP 122/45
== END 2018-03-15 22:10 | disposition short-term general hospital (02) ==
LOC: ER 03:20 → MS 03:20
PROVIDERS: ADMIT Family Medicine; ATTEND Family Medicine
DX: K52.9 Noninfective gastroenteritis and colitis, unspecified; D63.1 Anemia in chronic kidney disease; K80.01 Calculus of gallbladder with acute cholecystitis with obstruction; Z23 Encounter for immunization; N30.00 Acute cystitis without hematuria; K21.9 Gastro-esophageal reflux disease without esophagitis; K80.51 Calculus of bile duct without cholangitis or cholecystitis with obstruction; N17.9 Acute kidney failure, unspecified; N18.4 Chronic kidney disease, stage 4 (severe)
CPT/HCPCS: 36415; 71010; 71020; 71045; 71046; 76700; 80053; 81001; 83519; 83880; 84484; 85025; 85610; 85730; 87040; 90686; 93005; 96361; 96365; 96366; 96375; 96376; 99285; G0008; G0378; J2405

== ENCOUNTER 2018-07-10 22:43 | Observation (INO) ==
--- NOTE | 2018-07-10 23:06 | ERNOTE ---
Chest Pain/Cardiac HPI Time Seen by Provider: 07/10/18 22:46 Source: patient, family Exam Limitations: no limitations Immunizations: IMMUNIZATION HX Immunizations Up to Date Yes History of Influenza Vaccine Yes Hx Pneumococcal Vaccination Yes Allergies/Adverse Reactions: Allergies Sulfa (Sulfonamide Antibiotics) [Sulfa(Sulfonamide Antibiotics)] Allergy (Intermediate, Verified 07/10/18 23:30) clarithromycin [From Biaxin] Allergy (Verified 07/10/18 23:30) trimethoprim Allergy (Verified 07/10/18 23:30) iron [From Venofer] Adverse Reaction (Verified 07/10/18 23:31) Vomiting Home Medications: HOME MEDICATIONS Lactobacillus Rhamnosus GG [Probiotic] 1 cap PO DAILY 06/14/12 [Last Taken 07/10/18 10:00] Multivitamin [Multivitamins] 1 ea PO DAILY 06/14/12 [Last Taken 07/10/18 10:00] Naproxen Sodium [Naprelan] 500 mg PO BID 06/14/12 [Last Taken 07/10/18 10:00] Fish Oil/Borage/Flax/Om3,6,9#1 [[place] 3-6-9 1,200 mg Softgel] 1,200 mg PO DAILY 02/12/15 [Last Taken 07/10/18 10:00] Metoclopramide HCl [Reglan] 10 mg PO QID PRN #60 tab 02/15/15 [Last Taken 03/14/18 00:00] Acetaminophen [Pain Relief] 500 mg PO DAILY PRN 03/14/18 [Last Taken Unknown] Aspirin/Sod Bicarb/Citric Acid [[place] Es Tab Eff] 1 ea PO DAILY PRN 03/14/18 [Last Taken 03/13/18 18:00] allopurinol 100 mg tablet 100 mg PO DAILY #90 tab 05/01/18 [Last Taken 07/10/18 10:00] furosemide 40 mg tablet 40 mg PO DAILY #90 tab 05/01/18 [Last Taken 07/10/18 10:00] lisinopril 10 mg tablet 10 mg PO DAILY #90 tab 05/01/18 [Last Taken 07/10/18 10:00] omeprazole 20 mg tablet,delayed release 20 mg PO DAILY #90 tab 05/01/18 [Last Taken 07/10/18 10:00] Narrative: Pt had onset of palpitations approx 1 hours [employer] that are unchanged with activity or rest. Pt had an episode this afternoon around 13:00 but was relieved by activity. Pt feels palpitations then feels like her heart slows down s ignificantly. Timing: getting worse Severity/Quality: moderate Location: left chest Activities at Onset: rest Modifying Factors - Improves: Present: nothing Modifying Factors - Worsens: Present: movement Associated Symptoms: Present: denies symptoms Review of Systems - Review of Systems Constitutional: Present: recent illness - had a "cold" last week. Absent: fever, chills, fatigue EYE: Absent: vision changes ENT: Absent: sore throat, throat swelling Respiratory: Absent: shortness of breath, cough Cardiology: Present: See HPI, palpitations. Absent: chest pain Gastrointestinal/Abdominal: Absent: nausea, vomiting Genitourinary: Absent: frequency, dysuria Musculoskeletal: Absent: back pain, muscle pain Skin: Absent: rash Neurological: Absent: dizziness/light-headedness Endocrine: Absent: excessive sweating, flushing Hematologic/Lymphatic: Absent: easy bruising, easy bleeding Medical History (Last Reviewed 07/10/18 @ 23:04 by Jesus Day DO) Acute renal failure Cholecystitis CHF (congestive heart failure) Diabetes GERD (gastroesophageal reflux disease) Surgical History: Surgical History (Last Reviewed 07/10/18 @ 23:04 by Jesus Day DO) History of abdominal hernia Onset Date: 03/18/18 History of bilateral knee replacement History of endoscopic retrograde cholangiopancreatography Onset Date: 03/16/18 Dr. Larson, [facility]. Hx of appendectomy Hx of cholecystectomy Onset Date: 03/18/18 Hx of tonsillectomy Family History: Family History (Last Reviewed 07/10/18 @ 23:04 by Jesus Day DO) Father Arthritis Mother Heart disease Diabetes Sister Cancer Social History: Preferred Language [place] Smoking Status Former smoker Abuse History No History of abuse Psych History No pertinent hx (Last Updated 05/28/18 @ 22:52 by Nicolas Sanchez DO) No Social History Section defined Physical Exam - Physical Exam General Appearance: Present: wd/wn, no apparent distress Head Exam: Present: normal inspection, no evidence of injury Ears, Nose, Throat: Present: normal ENT inspection Neck: Present: normal inspection, nontender, supple Respiratory: Present: no respiratory distress, normal breath sounds, no accessory muscle use Cardiovascular/Chest: Present: normal peripheral pulses, tachycardia, irregularly irregular Gastrointestinal/Abdominal: Present: normal bowel sounds, nontender, nondistended, soft Extremity Exam: Present: normal inspection, normal range of motion, no edema Neurological Exam: Present: alert, oriented, normal mood/affect, no motor/sensory deficits Skin Exam: Present: normal color, warm/dry Lymphatic Exam: Present: no adenopathy Progress - Results and Orders Patient's Lab Results:: I have reviewed the patient's lab results. Results and Orders: Laboratory Tests 07/10/18 07/10/18 07/10/18 23:00 23:00 23:00 WBC 4.0 Hgb 9.0 L Hct 29.0 L Plt Count 97 L PT 10.2 INR (Anticoag Therapy) 1.02 PTT ([place]) 27.1 Sodium 140 Potassium 4.0 Chloride 104 Carbon Dioxide 25.1 BUN 25 H Creatinine 1.60 H Random Glucose 163 H Calcium 8.7 Total Bilirubin 0.4 AST 31 ALT 23 Alkaline Phosphatase 205 H Troponin I 0.072 Total Protein 8.5 H Albumin 3.3 L Urine Color Urine Appearance Urine pH Ur Specific [place] Urine Protein Urine Glucose (UA) Urine Ketones Urine Blood Urine Nitrate Urine Bilirubin Urine Urobilinogen Ur Leukocyte Esterase Urine RBC Urine WBC Ur Epithelial Cells Urine Bacteria Hyaline Casts Urine Mucus Urine Culture Comments 07/10/18 23:40 WBC Hgb Hct Plt Count PT INR (Anticoag Therapy) PTT ([place]) Sodium Potassium Chloride Carbon Dioxide BUN Creatinine Random Glucose Calcium Total Bilirubin AST ALT Alkaline Phosphatase Troponin I Total Protein Albumin Urine Color Yellow Urine Appearance Clear Urine pH 7.0 Ur Specific [place] 1.010 Urine Protein Negative Urine Glucose (UA) Negative Urine Ketones Negative Urine Blood 5 H Urine Nitrate Negative Urine Bilirubin Negative Urine Urobilinogen Normal Ur Leukocyte Esterase Negative Urine RBC 5-10 H Urine WBC 0-5 Ur Epithelial Cells 0-5 Urine Bacteria Trace Hyaline Casts Trace Urine Mucus Trace Urine Culture Comments No culture indicated - Vital Signs Patient's Vital Signs:: I have reviewed the patient's vital signs. - EKG EKG #1 EKG: atrial fibrillation - with RVR rate 129 EKG read: Interp. by me - X-Ray X-Ray #1 X-Ray: chest Interpretation: Interp. by me X-ray Comments: mild pulmonary edema no effusions or infiltrate - Progress/Reassessment Progress:: Improved Progress Note-Subjective: 07/11/18 00:[address] Santana about admission and she agrees. She prefers lovenox anticoagulation for tonight. Lovenox 1mg / kg ordered. Cardizem drip on hold at this time as the patients HR is staying in the 85-95 bpm range. Departure Clinical Impression: Atrial fibrillation with RVR Anemia Qualifiers: Anemia type: iron deficiency Iron deficiency anemia type: unspecified iron deficiency Qualified Code(s): D50.9 - Iron deficiency anemia, unspecified - Departure Disposition: Still a patient Condition: Fair
[2018-07-10] MEDS ORDERED: DILTIAZEM HCL 5 MG/ML VIAL IV ONE (23:08)
[2018-07-10 23:19] LABS: Mean Cell Volume 90.3 fl (78-100); Mean Platelet Volume 10.8 fl (8-12.5); Neutrophil % 75.4 % (42-75.0); Platelet Count 97 K/mm3 (150-450); Red Blood Count 3.21 M/mm3 (4.2-5.4); Red Cell Distribution Width 15.9 % (11.5-14.0)
[2018-07-10 23:29] LABS: Prothrombin Time (Patient) 10.2 Seconds (9.0-11.0)
[2018-07-10 23:32] LABS: INR 1.02 INR (0.90-1.10); Partial Thrombolplastin Time 27.1 Seconds (24-32)
[2018-07-10 23:36] LABS: Albumin * 3.3 gm/dl (3.4-5.0); Anion Gap 14.9 mmol/L (6.8-13.8); BUN/Creatinine Ratio 15.6 (9.0-21.6); Bilirubin, Total 0.4 mg/dL (0.0-1.1); Ca. Corrected For Albumin 8.9 mg/dL (8.4-10.2); Calcium * 8.7 mg/dL (7.9-10.9); Carbon Dioxide 25.1 mmol/L (24-32.6); Total Protein 8.5 gm/dL (6.2-8.2); Troponin I 0.072 ng/mL (0.00-0.10)
[2018-07-10 23:54] LABS: Urine Bilirubin Negative (NEGATIVE); Urine Ketone Negative (NEGATIVE); Urine Nitrite Negative (NEGATIVE); Urine Protein Negative (NEGATIVE); Urine Urobilinogen Normal (NORMAL)
[2018-07-10] MEDS ORDERED: DILTIAZEM HCL 125 MG in DEXTROSE 5 % IN WATER 100 ML IV PRN ×2 (23:58)
[2018-07-11 00:03] LABS: Urine Appearance Clear (CLEAR); Urine Blood 5 /ul (NEGATIVE); Urine Color Yellow
[2018-07-11 00:04] LABS: Urine Bacteria TRACE; Urine Hyaline Cast TRACE /LPF; Urine Mucus TRACE; Urine WBC 0-5 /hpf (0-5)
[2018-07-11] MEDS ORDERED: ENOXAPARIN SODIUM 100 MG/ML SYRG SC ONE (00:40)
[2018-07-11] MEDS ORDERED: ENOXAPARIN SODIUM 30 MG/0.3 ML SYRG SC ONE (00:41)
--- NOTE | 2018-07-11 10:39 | HP ---
Chief Complaint - Chief Complaint Date of Service: 07/11/18 Time of Service: 10:28 Chief Complaint: palpitations History of Present Illness: Patient with PMHx of anemia, diabetes, reflux had a few episodes of palpitations and presented to the ED. in the ED, she was in A. fib with RVR. She was given 10 mg IV Cardizem, and converted to normal sinus rhythm. She reports having been given beta-blockers in the past, and her heart rate decreased to the 30s. At the time of my exam, she denies chest pain, shortness of breath, abdominal pain, lightheadedness, lower extremity swelling. She states that chronic kidney failure and CHF are listed in her chart, but do not apply to her. She believes she had an echocardiogram in [place] prior to her gallbladder surgery last fall. Medical History (Last Updated 07/11/18 @ 02:32 by Soumya Delacruz RN) Borderline diabetes Cataract, bilateral Acute renal failure Cholecystitis GERD (gastroesophageal reflux disease) Surgical History: Surgical History (Last Reviewed 07/11/18 @ 02:25 by Soumya Delacruz RN) History of abdominal hernia Onset Date: 03/18/18 History of bilateral knee replacement History of endoscopic retrograde cholangiopancreatography Onset Date: 03/16/18 Dr. Larson, [facility]. Hx of appendectomy Hx of cholecystectomy Onset Date: 03/18/18 Hx of tonsillectomy Family History: Family History (Last Updated 07/11/18 @ 02:26 by Soumya Delacruz RN) Father Arthritis Mother Diabetes Heart disease Sister Cancer Brother CHF (congestive heart failure) Renal failure Social History: Patient Lives/Resources With Spouse Utilized Occupation retired Preferred Language Bulgarian Do you have any yarsani or Yes: Hindu cultural preference? Smoking Status Former smoker Have you smoked in the past 12 No months Do you dip or chew tobacco No Abuse History No History of abuse Psych History No pertinent hx Alcohol Use none Drug Use none (Last Updated 05/28/18 @ 22:52 by Nicolas Sanchez DO) No Social History Section defined Review Of Systems (GEN) - Review of Systems Generalized/Overall Review: Absent: Fever Respiratory: Absent: Shortness of Breath Cardiac: Present: Edema - mild, Palpitations. Absent: Chest Pain, Syncope Abdominal: Present: No Symptoms Reported Immunizations: IMMUNIZATION HX Immunizations Up to Date Yes History of Influenza Vaccine Yes Hx Pneumococcal Vaccination Yes Allergies/Adverse Reactions: Allergies Allergy/AdvReac Type Severity Reaction Status Date / Time Sulfa (Sulfonamide Allergy Intermediate Verified 07/10/18 23:30 Antibiotics) [Sulfa(Sulfonamide Antibiotics)] clarithromycin [From Biaxin] Allergy Verified 07/10/18 23:30 trimethoprim Allergy Verified 07/10/18 23:30 iron [From Venofer] AdvReac Vomiting Verified 07/10/18 23:31 Home Medications: HOME MEDICATIONS Lactobacillus Rhamnosus GG [Probiotic] 1 cap PO DAILY 06/14/12 [Last Taken 07/10/18 10:00] Multivitamin [Multivitamins] 1 ea PO DAILY 06/14/12 [Last Taken 07/10/18 10:00] Naproxen Sodium [Naprelan] 500 mg PO BID 06/14/12 [Last Taken 07/10/18 10:00] Fish Oil/Borage/Flax/Om3,6,9#1 [[place] 3-6-9 1,200 mg Softgel] 1,200 mg PO DAILY 02/12/15 [Last Taken 07/10/18 10:00] Metoclopramide HCl [Reglan] 10 mg PO QID PRN #60 tab 02/15/15 [Last Taken 03/14/18 00:00] Acetaminophen [Pain Relief] 500 mg PO DAILY PRN 03/14/18 [Last Taken Unknown] Aspirin/Sod Bicarb/Citric Acid [[place]aty[place] Es Tab Eff] 1 ea PO DAILY PRN 03/14/18 [Last Taken 03/13/18 18:00] allopurinol 100 mg tablet 100 mg PO DAILY #90 tab 05/01/18 [Last Taken 07/10/18 10:00] furosemide 40 mg tablet 40 mg PO DAILY #90 tab 05/01/18 [Last Taken 07/10/18 10:00] lisinopril 10 mg tablet 10 mg PO DAILY #90 tab 05/01/18 [Last Taken 07/10/18 10:00] omeprazole 20 mg tablet,delayed release 20 mg PO DAILY #90 tab 05/01/18 [Last Taken 07/10/18 10:00] Exam - Exam Vital Signs: Vital Signs - Last Taken Temp 36.8 C 07/11/18 06:00 Pulse 67 07/11/18 06:00 Resp 16 07/11/18 06:00 BP 150/46 H 07/11/18 06:00 Pulse Ox 97 07/11/18 06:00 Constitutional: Present: Alert, Oriented x3, Cooperative, Morbidly obese Respiratory: Present: no respiratory distress - distant, secondary to body habitus Cardiovascular/Chest: Present: bradycardia - HR 56 Abdomen: Present: soft, nontender, obese Extremity: Present: lower extremity edema - 1+ bilaterally to the ankle Diagnostic Studies: Abnormal Lab Results 07/10/18 07/10/18 07/10/18 Range/Units 23:00 23:00 23:40 RBC 3.21 L (4.2-5.4) M/mm3 Hgb 9.0 L (12.5-16.0) gm/dL Hct 29.0 L (37.0-47.0) % MCHC 31.0 L (32-36) g/dl RDW 15.9 H (11.5-14.0) % Plt Count 97 L (150-450) K/mm3 Neutrophils % 75.4 H (42-75.0) % Lymphocytes % 15.9 L (20-51) % Lymphocytes # 0.63 L (1.5-3.5) k/mm3 Anion Gap 14.9 H (6.8-13.8) mmol/L BUN 25 H (3-23) mg/dL Creatinine 1.60 H (0.4-1.4) mg/dL Est GFR (Non-Af Amer) 34 L (60-130) mL/min Random Glucose 163 H (70-110) mg/dL Alkaline Phosphatase 205 H (50-170) U/L Total Protein 8.5 H (6.2-8.2) gm/dL Albumin 3.3 L (3.4-5.0) gm/dl Urine Blood 5 H (NEGATIVE) /ul Urine RBC 5-10 H (0-5) /hpf Laboratory Results WBC 4.0 K/mm3 (4.0-10.5) 07/10/18 23:00 RBC 3.21 M/mm3 (4.2-5.4) L 07/10/18 23:00 Hgb 9.0 gm/dL (12.5-16.0) L 07/10/18 23:00 Hct 29.0 % (37.0-47.0) L 07/10/18 23: MCV 90.3 fl (78-100) 07/10/18 23: MCH 28.0 pg (27-31) 07/10/18 23: MCHC 31.0 g/dl (32-36) L 07/10/18 23:00 RDW 15.9 % (11.5-14.0) H 07/10/18 23: Plt Count 97 K/mm3 (150-450) L 07/10/18: MPV 10.8 fl (8-12.5) 07/10/18 23: Immature Gran % (Auto) 0.30 % (0.001-0.429) 07/10/18: Immature Gran # (Auto) 0.01 K/mm3 (0.000-0.0310) 07/10/18 23: Neutrophils % 75.4 % (42-75.0) H 07/10/18 23: Lymphocytes % 15.9 % (20-51) L 07/10/18 23: Monocytes % 6.8 % (0.0-9) 07/10/18 23: Eosinophils % 1.3 % (0.0-3.0) 07/10/18: Basophils % 0.3 % (0.0-1.0) 07/10/18: Nucleated RBC % 0.0 k/mm3 (0-1) 07/10/18 23: Neutrophils # 3.0 K/mm3 (1.3-6.0) 07/10/18 23: Lymphocytes # 0.63 k/mm3 (1.5-3.5) L 07/10/18 23: Monocytes # 0.3 k/mm3 (0.0-1.0) 07/10/18 23: Eosinophils # 0.1 k/mm3 (0.0-0.7) 07/10/18: Absolute Basophils 0.0 k/mm3 (0.0-0.1) 07/10/18 23: PT 10.2 Seconds (9.0-11.0) 07/10/18 23:00 INR (Anticoag Therapy) 1.02 INR (0.90-1.10) 07/10/18 23:00 PTT ([place]) 27.1 Seconds (24-32) 07/10/18 23:00 Sodium 140 mmol/L (132-142) 07/10/18 23:00 Plasma Sodium 141 mmol/L (130-142) 07/10/18 23:00 Potassium 4.0 mmol/L (3.4-4.6) 07/10/18 23:00 Chloride 104 mmol/L (97-106) 07/10/18 23:00 Carbon Dioxide 25.1 mmol/L (24-32.6) 07/10/18 23:00 Anion Gap 14.9 mmol/L (6.8-13.8) H 07/10/18 23:00 BUN 25 mg/dL (3-23) H 07/10/18 23:00 Creatinine 1.60 mg/dL (0.4-1.4) H 07/10/18 23:00 Est GFR (Non-Af Amer) 34 mL/min (60-130) L 07/10/18 23:00 BUN/Creatinine Ratio 15.6 (9.0-21.6) 07/10/18 23:00 Random Glucose 163 mg/dL (70-110) H 07/10/18 23:00 Calcium 8.7 mg/dL (7.9-10.9) 07/10/18 23:00 Calcium Adj for Albumin 8.9 mg/dL (8.4-10.2) 07/10/18 23:00 Total Bilirubin 0.4 mg/dL (0.0-1.1) 07/10/18 23:00 AST 31 U/L (0-48) 07/10/18 23:00 ALT 23 U/L (19-67) 07/10/18 23:00 Alkaline Phosphatase 205 U/L (50-170) H 07/10/18 23:00 Troponin I 0.072 ng/mL (0.00-0.10) 07/10/18 23:00 Total Protein 8.5 gm/dL (6.2-8.2) H 07/10/18 23:00 Albumin 3.3 gm/dl (3.4-5.0) L 07/10/18 23:00 Urine Color Yellow 07/10/18 23:40 Urine Appearance Clear (CLEAR) 07/10/18 23:40 Urine pH 7.0 pH (5.0-7.0) 07/10/18 23:40 Ur Specific [place] 1.010 SP.GR. (1.005-1.010) 07/10/18 23:40 Urine Protein Negative mg/dL (NEGATIVE) 07/10/18 23:40 Urine Glucose (UA) Negative mg/dL (NEGATIVE) 07/10/18 23:40 Urine Ketones Negative mg/dL (NEGATIVE) 07/10/18 23:40 Urine Blood 5 /ul (NEGATIVE) H 07/10/18 23:40 Urine Nitrate Negative (NEGATIVE) 07/10/18 23:40 Urine Bilirubin Negative mg/dl (NEGATIVE) 07/10/18 23:40 Urine Urobilinogen Normal EU/dl (NORMAL) 07/10/18 23:40 Ur Leukocyte Esterase Negative /ul (NEGATIVE) 07/10/18 23:40 Urine RBC 5-10 /hpf (0-5) H 07/10/18 23:40 Urine WBC 0-5 /hpf (0-5) 07/10/18 23:40 Ur Epithelial Cells 0-5 /hpf (0-5) 07/10/18 23:40 Urine Bacteria Trace (NONE) 07/10/18 23:40 Hyaline Casts Trace /LPF (NONE) 07/10/18 23:40 Urine Mucus Trace (NONE) 07/10/18 23:40 Urine Culture Comments No culture indicated 07/10/18 23:40 Assessment/Plan - Assessment/Plan (1) Atrial fibrillation with RVR Assessment: At the time of my exam, she has converted to normal sinus rhythm with heart rate of 56. She reports previously being given a beta-yo and her heart rate decreased to the 30s. She currently has bradycardia, and we will not add additional rate control medication, as this will likely decrease her heart rate even further. She does agree to anticoagulation, and will start Lovenox and 5 mg Coumadin daily. She reports having had an echocardiogram in March 2018, however unable to find this with chart review. She has not actually had an echo recently, would recommend after discharge. Will order TSH to be done with INR after discharge. She has hypothyroidism listed as a problem in her chart. TSH in November 2017 was 2.4. Problem: Resolved (2) Anemia Assessment: Hemoglobin of 9 today. Her baseline appears to be around 10, so she is not significantly decreased from her normal. No further intervention. Problem: Chronic Qualifiers: Anemia type: iron deficiency Iron deficiency anemia type: unspecified iron deficiency Qualified Code(s): D50.9 - Iron deficiency anemia, unspecified (3) Swelling of both lower extremities Assessment: Patient is prescribed 40 mg p.o. Lasix daily, will continue. 1+ bilateral swelling present currently, without pitting. If no recent echo, would recommend after discharge. Problem: Chronic (4) CKD (chronic kidney disease) stage 3, GFR 30-59 ml/min Assessment: Patient is unaware of having had any kidney diagnoses, however her GFR is 34, indicating stage III chronic renal disease. Her baseline creatinine looks to be around 1.38. Problem: Chronic (5) Diabetes Problem: Chronic Qualifiers: Diabetes mellitus type: type 2 Diabetes mellitus termite technician insulin use: without termite technician use
--- NOTE | 2018-07-11 11:07 | DS ---
(1) Atrial fibrillation with RVR Problem: Resolved (2) Anemia Problem: Chronic Qualifiers: Anemia type: iron deficiency Iron deficiency anemia type: unspecified iron deficiency Qualified Code(s): D50.9 - Iron deficiency anemia, unspecified (3) Swelling of both lower extremities Problem: Chronic (4) CKD (chronic kidney disease) stage 3, GFR 30-59 ml/min Problem: Chronic (5) Diabetes Problem: Chronic Qualifiers: Diabetes mellitus type: type 2 Diabetes mellitus chcf insulin use: without chcf use Description of Stay: Patient with PMHx of anemia, diabetes, reflux had a few episodes of palpitations and presented to the ED. in the ED, she was in A. fib with RVR. She was given 10 mg IV Cardizem, and converted to normal sinus rhythm. She reports having been given beta-blockers in the past, and her heart rate decreased to the 30s. Her heart rate on my exam was 56. She likely would not tolerate a rate control agent. Since she was having intermittent palpitations, she likely was going in and out of sinus rhythm, so she is at increased risk of stroke. CHADSVASC score of 4.0, indicating moderate-high risk. She agreed to anticoagulation, and will DC with lovenox and warfarin until her INR is greater than 2.0. Will order TSH to be drawn after DC. She feels like she had an echocardiogram in in March, but unable to locate this in her chart. If this has not been done, I would also recommend an echo. Denies chest pain, shortness of breath, abdominal pain, lightheadedness, lower extremity swelling. She states that chronic kidney failure and CHF are listed in her chart, but do not apply to her. Chart review shows that she does have stage III CKD. Procedures Performed: none Results and Findings: Lab Pending Results 07/10/18 23:00: WBC 4.0, RBC 3.21 L, Hgb 9.0 L, Hct 29.0 L, MCV 90.3, MCH 28.0, MCHC 31.0 L, RDW 15.9 H, Plt Count 97 L, MPV 10.8, Immature Gran % (Auto) 0.30, Immature Gran # (Auto) 0.01, Neutrophils % 75.4 H, Lymphocytes % 15.9 L, Monocytes % 6.8, Eosinophils % 1.3, Basophils % 0.3, Nucleated RBC % 0.0, Neutrophils # 3.0, Lymphocytes # 0.63 L, Monocytes # 0.3, Eosinophils # 0.1, Absolute Basophils 0.0 07/10/18 23:00: PT 10.2, INR (Anticoag Therapy) 1.02, PTT ([place]) 27.1 07/10/18 23:00: Sodium 140, Plasma Sodium 141, Potassium 4.0, Chloride 104, Carbon Dioxide 25.1, Anion Gap 14.9 H, BUN 25 H, Creatinine 1.60 H, Est GFR (Non-Af Amer) 34 L, BUN/Creatinine Ratio 15.6, Random Glucose 163 H, Calcium 8.7, Calcium Adj for Albumin 8.9, Total Bilirubin 0.4, AST 31, ALT 23, Alkaline Phosphatase 205 H, Troponin I 0.072, Total Protein 8.5 H, Albumin 3.3 L 07/10/18 23:40: Urine Color Yellow, Urine Appearance Clear, Urine pH 7.0, Ur Specific [place] 1.010, Urine Protein Negative, Urine Glucose (UA) Negative, Urine Ketones Negative, Urine Blood 5 H, Urine Nitrate Negative, Urine Bilirubin Negative, Urine Urobilinogen Normal, Ur Leukocyte Esterase Negative, Urine RBC 5-10 H, Urine WBC 0-5, Ur Epithelial Cells 0-5, Urine Bacteria Trace, Hyaline Casts Trace, Urine Mucus Trace, Urine Culture Comments No culture indicated Discharge Location: Home Disposition: Home self-care Condition: Fair Discharge Activity: Activity as tolerated Discharge Diet: Consistent carbs Referrals: Nicolas Sanchez DO [Primary Care Provider] - Prescriptions (Any new or edited meds): Enoxaparin Sodium [Lovenox] 40 mg SQ DAILY 5 Days #5 ml Warfarin Sodium 5 mg PO DAILY #30 tab Complete Home Medications List: Complete Home Medication List: Lactobacillus Rhamnosus GG [Probiotic] 1 cap PO DAILY 06/14/12 Multivitamin [Multivitamins] 1 ea PO DAILY 06/14/12 Naproxen Sodium [Naprelan] 500 mg PO BID 06/14/12 Fish Oil/Borage/Flax/Om3,6,9#1 [[place] 3-6-9 1,200 mg Softgel] 1,200 mg PO DAILY 02/12/15 Metoclopramide HCl [Reglan] 10 mg PO QID PRN #60 tab 02/15/15 Acetaminophen [Pain Relief] 500 mg PO DAILY PRN 03/14/18 Aspirin/Sod Bicarb/Citric Acid [Katy-[place] Es Tab Eff] 1 ea PO DAILY PRN 03/14/18 allopurinol 100 mg tablet 100 mg PO DAILY #90 tab 05/01/18 furosemide 40 mg tablet 40 mg PO DAILY #90 tab 05/01/18 lisinopril 10 mg tablet 10 mg PO DAILY #90 tab 05/01/18 omeprazole 20 mg tablet,delayed release 20 mg PO DAILY #90 tab 05/01/18 Enoxaparin Sodium [Lovenox] 40 mg SQ DAILY 5 Days #5 ml 07/11/18 Warfarin Sodium 5 mg PO DAILY #30 tab 07/11/18
[2018-07-11 11:54] VITALS: BP 130/47
== END 2018-07-11 12:21 | disposition home or self-care (01) ==
LOC: ER 22:43 → MS 22:43
PROVIDERS: ADMIT Family Medicine; ATTEND Family Medicine
CPT/HCPCS: 36415; 71010; 71045; 80053; 81001; 84484; 85025; 85610; 85730; 93005; 96374; 96375; 99285; G0378